=== PATIENT | male | born 1980 | race Caucasian/White ===

== ENCOUNTER 2018-10-01 17:12 | Emergency (ER) | payer SELFPAY ==
[~2018-10-01] VITALS: Ht 175.3 cm; Wt 86.2 kg
[2018-10-01] MEDS ORDERED: ESCI20TA PO (17:25)
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
--- NOTE | 2018-10-01 17:42 | NUR ---
KIRK MAWXELL AT BEDSIDE FOR MSE.
[2018-10-01] MEDS ORDERED: HYDROCODONE/APAP 10-325 MG TABLET ONE (17:52)
--- NOTE | 2018-10-01 17:56 | NUR ---
CHIEF NURSE ANESTHETIST AT BEDSIDE.
[2018-10-01] MEDS ORDERED: HYDROCODONE/APAP 10-325 MG TABLET PO ONE (18:00)
[2018-10-01 18:15] VITALS: BP 122/70
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
== END 2018-10-01 18:16 | disposition home or self-care (01) ==
LOC: ER 17:12
DX: S93.501A Unspecified sprain of right great toe, initial encounter (principal); Z79.899 Other long term (current) drug therapy; W20.8XXA Other cause of strike by thrown, projected or falling object, initial encounter; Y93.89 Activity, other specified; Y92.89 Other specified places as the place of occurrence of the external cause; Y99.8 Other external cause status
CPT/HCPCS: 73630; A4663